=== PATIENT | male | born 1950 | race Two or more races ===

== ENCOUNTER 2019-12-22 08:57 | Outpatient (CLI) | payer OTHER | END 2019-12-22 09:03 | disposition home or self-care (01) | LOC: LAB 08:57 | DX: N20.0 Calculus of kidney (principal) ==

== ENCOUNTER 2019-12-27 07:29 | Outpatient (CLI) | payer OTHER | END 2019-12-27 07:36 | disposition home or self-care (01) | LOC: TOM 07:29 | DX: N40.1 Benign prostatic hyperplasia with lower urinary tract symptoms (principal); R31.0 Gross hematuria ==